=== PATIENT | male | born 1960 | race Two or more races ===

== ENCOUNTER → 2019-01-23 | Outpatient (CLI) | payer OTHER | END | disposition home or self-care (01) | LOC: RAD 16:16 | DX: M79.671 Pain in right foot (principal) ==

== ENCOUNTER 2019-03-18 08:01 | Outpatient (CLI) | payer OTHER | END 2019-03-18 08:07 | disposition home or self-care (01) | LOC: RAD 08:01 | DX: M25.571 Pain in right ankle and joints of right foot (principal) ==